=== PATIENT | female | born 1960 | race Hispanic/Latino ===

== ENCOUNTER 2017-06-24 19:53 | Emergency (ER) | payer BC, OTHER ==
[2017-06-24] MEDS ORDERED: DEXAMETHASONE SOD PHOSPHATE 10MG/ML 1ML VIAL ONE (20:16)
[2017-06-24] MEDS ORDERED: DiphenhydrAMINE HCL 50 MG/ML VIAL ONE (20:17)
[2017-06-24] MEDS ORDERED: SODIUM CHLORIDE 0.9% 1000ML 1,000 ML IV ONE (20:17)
[2017-06-24] MEDS ORDERED: FAMOTIDINE 20MG TAB 20 MG TAB ONE (20:28)
== END 2017-06-24 21:05 | disposition home or self-care (01) ==
LOC: EDH 19:53
DX: L50.9 Urticaria, unspecified (principal); R51 Headache
CPT/HCPCS: 96361; 96374; 96375; 99284; J1100; J1200; J7030